=== PATIENT | male | born 1955 ===

== ENCOUNTER 2016-08-17 06:13 | Day surgery (SDC) | payer OTHER ==
[~2016-08-17] VITALS: Ht 180.3 cm; Wt 139.7 kg
[~2016-08-17 06:13] MED LIST: LISINOPRIL20 MG PO; OMEPRAZOLE20 M1 PO; SPIRONOLACTONE25 MG PO
--- NOTE | 2016-08-17 09:15 | Provider's Discharge Care Plan ---
Problem, Goal, Plan Problem List 1. S/P colonoscopy Goals: Screening Instructions: Follow up as needed, Take meds as directed, HIGH FIBER DIET
--- NOTE | 2016-08-17 09:15 | Provider's Discharge Care Plan ---
Problem, Goal, Plan Problem List 1. S/P colonoscopy Goals: Screening Instructions: Follow up as needed, Take meds as directed, HIGH FIBER DIET
--- NOTE | 2016-08-17 10:05 | OPERATIVE REPORT ---
DATE OF SURGERY: 08/17/2016 SURGEON: Lavell Rivas III, MD COPIER TECHNICIAN: None. PREOPERATIVE DIAGNOSIS: 1. History of colon polyps POSTOPERATIVE DIAGNOSIS: PROCEDURES PERFORMED: 1. Colonoscopy 2. Anoscopy ANESTHESIA: TIVA. INDICATIONS: The patient is a 61-year-old male whose last colonoscopy was approximately 3 years ago and had 2 or 3 polyps removed at that time. The patient states that in the last few months he has had some rectal discomfort, attributing this to his hemorrhoids. Denies any lumps or bumps exiting from the anus. The discomfort exacerbated by activity , particularly riding his motorcycle. SURGICAL FINDINGS: Normal-appearing cecum, ascending, transverse, descending colon, sigmoid colon, and rectal vault. On anoscopy and evaluating for hemorrhoidal tissue, there was only some posterior bleeding on the knotted sponge on withdrawal, but no evidence of prolapsing hemorrhoids. SURGICAL TECHNIQUE: The patient was brought to the operating room and placed in the left lateral decubitus position, where he was administered TIVA and monitored closely by anesthesia. After proper anesthesia had taken effect, a digital rectal examination revealed no masses or stenosis. This was followed by the passage of a fiberoptic video flexible Olympus colonoscope which, without difficulty, negotiated to the cecum. The cecum was identified by anatomical landmarks and anterior abdominal wall ballottement. On withdrawing the scope, the aforementioned findings were noted. The scope was withdrawn, retroflexed, good view of the rectal vault obtained. No pathology identified. The scope was then completely withdrawn. The patient tolerated that portion of the procedure well. With the patient still lying in the left lateral decubitus position, a Colbert bivalve speculum was introduced into the patient's rectal vault and opened. A knotted Kerlix sponge was placed in the rectal vault. The bivalve speculum was removed. The knotted Kerlix sponge was withdrawn, simulating a bowel movement. There was only trace bleeding on the anterior aspect of the anus, but no prolapsing hemorrhoidal tissue identified. The sponge was completely withdrawn. The patient tolerated the procedure well and was transferred to the recovery room in stable condition. There were no intraoperative or anesthetic complications.
== END 2016-08-17 10:46 | disposition home or self-care (01) ==
LOC: SDC SRH 06:13 → SCU SRH 06:14 → OR SRH 08:30 → SDC SRH 08:30
PROVIDERS: Specialist
PROC: 0DJD8ZZ Inspection of Lower Intestinal Tract, Via Natural or Artificial Opening Endoscopic (ICD-10-PCS; principal; 2016-08-17 08:30)
DX: Z12.11 Encounter for screening for malignant neoplasm of colon (principal); Z86.010 Personal history of colon polyps; K62.89 Other specified diseases of anus and rectum; R63.5 Abnormal weight gain; Z68.42 Body mass index [BMI] 45.0-49.9, adult; I10 Essential (primary) hypertension
CPT/HCPCS: 29229; 29240; 50004; 60001; 83526